=== PATIENT | male | born 1985 ===

== ENCOUNTER → 2021-03-09 12:24 | Outpatient (CLI) | payer OTHER, SELFPAY ==
[2021-03-09 20:48] LABS: COVID19 - ORCAS (NP or Nasal) Negative (Negative)
== END ==
PROVIDERS: PCP Family Medicine; Visit Provider Physician Assistant Medical
DX: Z20.822 Contact with and (suspected) exposure to COVID-19 (principal)
CPT/HCPCS: C9803; U0003